=== PATIENT | male | born 1985 | race Caucasian/White ===

== ENCOUNTER → 2017-11-14 | Emergency (ER) | payer OTHER ==
[~2017-11-14] VITALS: Ht 175.3 cm; Wt 87.1 kg
[~2017-11-14] MED LIST: KETO10TA2 PO; LEVAQUIN500 MG PO
== END | disposition home or self-care (01) ==
LOC: ER 21:47
DX: S81.011A Laceration without foreign body, right knee, initial encounter (principal); W54.0XXA Bitten by dog, initial encounter; Y93.89 Activity, other specified; Y92.89 Other specified places as the place of occurrence of the external cause; Y99.8 Other external cause status

== ENCOUNTER 2023-08-19 08:37 | Emergency (ER) | payer OTHER ==
[~2023-08-19] VITALS: Ht 177.8 cm; Wt 95.3 kg
[2023-08-19] MEDS ORDERED: TYLENOL325 MG PO (09:01)
[2023-08-19] MEDS ORDERED: ZITHROMAX200 MG PO (09:01)
[2023-08-19] MEDS ORDERED: MUCINEX600 MG PO (09:01)
[2023-08-19 10:29] LABS: HEMATOCRIT 45.6 % (39.0-48.0); HEMOGLOBIN 15.8 g/dL (13-16.00); MEAN CELL VOLUME 81.8 fL (80.0-100.00); MEAN CORPUSCULAR HEMOGLOBIN 28.3 pg (27.00-32.0); MEAN CORPUSCULAR HGB CONC 34.6 g/dl (32.0-36.0); RED BLOOD COUNT 5.58 M/uL (4.00-6.00); RED CELL DISTRIBUTION WIDTH 13.2 % (11.5-14.5)
[2023-08-19 11:02] LABS: PLATELET COUNT 125 K/uL (150-450)
== END 2023-08-19 11:44 | disposition home or self-care (01) ==
LOC: ER 08:37
PROVIDERS: General Practice
DX: B34.9 Viral infection, unspecified (principal); A90 Dengue fever [classical dengue]; Z88.0 Allergy status to penicillin; Z20.822 Contact with and (suspected) exposure to COVID-19